=== PATIENT | female | born 1985 | race Caucasian/White ===

== ENCOUNTER 2017-05-22 18:14 | Emergency (ER) | payer OTHER ==
[~2017-05-22] VITALS: Ht 167.6 cm; Wt 105.2 kg
[2017-05-22 18:19] VITALS: BP 147/97
[2017-05-22] MEDS ORDERED: AUGMENTIN 875-1 EACH PO (18:37)
[2017-05-22] MEDS ORDERED: TRAMADOL 50 MG50 MG PO (18:37)
[2017-05-22] MEDS ORDERED: AFRIN15 ML NS (18:37)
[2017-05-22] MEDS ORDERED: CLARITIN10 MG PO (18:38)
== END 2017-05-22 18:40 | disposition home or self-care (01) ==
LOC: M.ERS 18:14
DX: H66.90 Otitis media, unspecified, unspecified ear (principal); F32.9 Major depressive disorder, single episode, unspecified